=== PATIENT | female | born 1995 | race Caucasian/White ===

== ENCOUNTER 2018-06-22 21:46 | Emergency (ER) | payer BC ==
[2018-06-22 22:14] VITALS: BMI 29.8
[2018-06-23 03:43] VITALS: BP 103/76; PULSE 106; RESP 16; TEMP 99.3
--- NOTE | 2018-06-23 08:51 | US ---
Date of service: 06/22/2018 PROCEDURE: Limited obstetrical ultrasound examination and biophysical profile HISTORY: No FM "all day" COMPARISON: Not available TECHNIQUE: Transabdominal FINDINGS: There is a single live intrauterine gestation in cephalic presentation. The heart rate is 142 beats per minute. A normal quantity of amniotic fluid is visualized. The LUCERO is 12.7 cm. Normal anterior fundal placenta is identified. There is no evidence of placenta previa. The cervix measures 3.1 cm in length and is closed. biometry yields a gestational age of 36 weeks 5 days. The JOSE D by ultrasound is 07/15/2018. The EFW is 2831 g. Limited review of anatomy demonstrates fluid distending the stomach and urinary bladder. Two normal kidneys are demonstrated without evidence of hydronephrosis. A four-chamber heart is inadequately demonstrated at this time. A three-vessel umbilical cord is seen. The anterior abdominal wall is intact. No abnormality of the spine is demonstrated. Duplex Doppler are ultrasound of the umbilical artery yields a S/ D ratio of 1.8, within normal limits. Limited biophysical profile examination yields a score of 8 out of 8. IMPRESSION: Single live intrauterine gestation of 36 weeks 5 days gestational age. Cephalic presentation. No gross anatomic abnormality. Normal amniotic fluid volume. No previa. Anterior fundal placenta. Cervix long and closed. Biophysical profile score 8 out of 8. The preliminary findings for this examination were reported by [facility] at 11:16 p.m. on 06/22/2018. There is concurrence of this report with the preliminary findings.
== END 2018-06-22 23:30 | disposition home or self-care (01) ==
LOC: C.EROB 21:46
DX: O36.8130 Decreased fetal movements, third trimester, not applicable or unspecified (principal); Z3A.35 35 weeks gestation of pregnancy

== ENCOUNTER 2018-07-19 19:08 | Inpatient (IN) | payer BC ==
[2018-07-19 19:08] VITALS: BMI 29.8
--- NOTE | 2018-07-19 19:27 | OBADHP ---
Datetime: 07/19/2018 19:13 Admit Comment, IP Provider: 22 y/o at 39.4 wks presents with c/o ctx started this morning. Pt h as no c/o vaginal bleeding or LOF. + FM. Pt received PNC with Dr Toledo. PMH: Denies PSH: Denies POBH: Primigravid ALL: NKDA EXAM: VE: TOCO: CTX -irregualr EFM: 140 cat 1 GBS- Negative A/P: Admit to L_D to Dr Kristine Toledo's service CBC/CMP/IVF Epidural for anelgesia if requested by the pt. Plan for Amniotamy Pelvic Type - PN: Adequate Extremities - PN: Normal Abdomen - PN: Normal Back - PN: Normal Breast - PN: Normal Lungs - PN: Normal Heart - PN: Normal Thyroid - PN: Normal Neurologic - PN: Normal HEENT - PN: Normal General - PN: Normal Presentation-Admit: Vertex FHR - Baseline A Provider: 140 Membranes, Provider: Intact Contraction Comments Provider: irregular Comments, ACOG Physical Exam: ABD: Soft, NT ETR: No calf tenderness VE: Gestation - Est Wks by US: 39.4 Vital Signs Provider: Reviewed; Within Normal Limits IP Chief Complaint: Uterine contractions NICHD Variability Prov Fetus A: Marked >25bpm NICHD Accel Fetus A IP Provider: 15X15 FHR Category Provider Fetus A: Category I NICHD Decel Fetus A IP Provider: None Dilatation, Provider: 4-5 Effacement, Provider: 90 Station, Provider: -2 Genitourinary Exam: Normal DTRs - PN: Normal EGA AdmitDate IP: 39.4 IP Adm Impression: Term, intrauterine ; Active labor IP Admit Plan: Initiate labor protocol Datetime: 06/22/2018 22:17 IP Chief Complaint Other: No movement IP Adm Impression Other: (+) ovement IP Admit Plan Other: BPP
[2018-07-19] MEDS ORDERED: Lactated Ringer's 1,000 ML IV ONE (19:35)
[2018-07-19] MEDS ORDERED: Lactated Ringer's 1,000 ML IV SCH (19:45)
[2018-07-19 20:24] LABS: BASO % 0.2 % (0.0-2.0); EOS # 0.1 K/uL (0.0-0.7); EOS % 0.9 % (0.0-4.0); HEMOGLOBIN 11.8 g/dL (11.0-16.0); LYMPH # 2.2 K/uL (1.0-4.3); LYMPH % 17.9 % (20.0-40.0); MEAN CELL VOLUME 83.2 fL (81.0-99.0); MEAN CORPUSCULAR HEMOGLOBIN 27.6 pg (27.0-31.0); MEAN CORPUSCULAR HGB CONC 33.1 g/dL (33.0-37.0); MEAN PLATELET VOLUME 8.7 fL (7.2-11.7); MONO # 0.8 K/uL (0.0-0.8); MONO % 6.5 % (0.0-10.0); NEUT % 74.5 % (50.0-75.0); NRBC % 0.1 % (0.0-2.0); RBC 4.3 Mil/uL (3.80-5.20); RED CELL DISTRIBUTION WIDTH 14.7 % (11.5-14.5); WHITE BLOOD COUNT 12.1 K/uL (4.8-10.8)
[2018-07-19 20:31] LABS: SQUAMOUS EPITHIAL 41 /hpf (0-5); URINE BACTERIA MOD (<OCC); URINE BILIRUBIN NEGATIVE (NEGATIVE); URINE BLOOD 3+ (NEGATIVE); URINE CLARITY Hazy (Clear); URINE COLOR Amber (YELLOW); URINE GLUCOSE (UA) NORMAL (Normal); URINE LEUKOCYTE ESTERASE 3+ Leu/uL (Negative); URINE PROTEIN 2+ mg/dL (NEGATIVE); URINE UROBILINOGEN NORMAL mg/dL (0.2-1.0)
[2018-07-19 20:36] LABS: ALB/GLOB RATIO 1.1 (1.0-2.1); ALBUMIN 3.7 g/dL (3.5-5.0); ALT/SGPT 11 U/L (9-52); AST/SGOT 31 U/L (14-36); BLOOD UREA NITROGEN 8 mg/dL (7-17); CALCIUM 8.7 mg/dl (8.6-10.4); GFR NON-AFRICAN AMERICAN > 60
[2018-07-19] MEDS ORDERED: Bupivacaine HCl/FentaNYL Cit 100 ML EPI ONE (20:44)
--- NOTE | 2018-07-19 21:28 | OBPN ---
Datetime: 07/19/2018 21:24 IP Procedures: Artificial ROM IP Progress Plan: Continue present management Membranes, Provider: Ruptured Amniotic Fluid Color, Provider: Clear FHR - Baseline A Provider: 140 Presentation-Admit: Vertex IP Progress Note Comment: Pt comfortable with epidural Continue present management Vital Signs Provider: Reviewed; Within Normal Limits NICHD Accel Fetus A IP Provider: 15X15 NICHD Variability Prov Fetus A: Moderate 6-25bpm NICHD Decel Fetus A IP Provider: None Datetime: 07/19/2018 19:13 Contraction Comments Provider: irregular Gestation - Est Wks by US: 39.4 FHR Category Provider Fetus A: Category I Dilatation, Provider: 4-5 Effacement, Provider: 90 Station, Provider: -2
--- NOTE | 2018-07-19 22:53 | OBPN ---
Datetime: 07/19/2018 22:46 IP Progress Impression: Normal progression of labor IP Progress Plan: Continue present management; Anticipate Vaginal Delivery Membranes, Provider: Ruptured FHR - Baseline A Provider: 150 Gestation - Est Wks by US: 39.4 Presentation-Admit: Vertex IP Progress Note Comment: pt seen and examiend s/p epidural VS as above EFM: Cat I TOCO: q 5 min A/P @ 39.4 wks GA in labor strart pushing con ttoco adn efm FHR Category Provider Fetus A: Category I NICHD Variability Prov Fetus A: Moderate 6-25bpm Dilatation, Provider: 10 Effacement, Provider: 100 Station, Provider: -1 NICHD Decel Fetus A IP Provider: None
[2018-07-19] MEDS ORDERED: Oxytocin 30 UNIT 30 UNITS/500 ML BAG IV SCH (23:30)
[2018-07-20] MEDS ORDERED: Oxycodone/Acetaminophen 5/325 mg Tab PO PRN ×2 (00:10)
[2018-07-20] MEDS ORDERED: Benzocaine/Menthol 20%-0.5% Topical Spray (60 ml) TOP PRN (00:10)
--- NOTE | 2018-07-20 00:10 | OBPPN ---
Datetime: 07/20/2018 00:08 PP Pain Prov: Within normal limits PP Nausea Prov: Denies PP Flatus Prov: Yes PP Breasts Prov: Normal PP Heart Prov: Normal PP Lungs Prov: Normal PP Abdomen/Uterus Prov: Normal PP Lochia Prov: Normal PP Vulva/Perineum Prov: Normal PP CVA Tenderness Prov: Normal PP Extremities Prov: Normal PP C/S Incision Prov: Not Applicable PP Progress Prov: Not Applicable PP Impression Prov: Normal progression PP Progress Note Prov: pt seen and exmained. no complaints vs see aobve pe see above a/p s/ pnsdv ppd #1 am cbc pain mangent regualr diet encourage bresat feeidgn and ambuationg once stable Vital Signs Provider PP: Reviewed
--- NOTE | 2018-07-20 00:10 | OBDS ---
DELIVERY PERSONNEL Delivery Doctor: Casi Toledo MD Landscape Photographer: Yesenia Rm RN Anesthesiologist: DR CODY VILLAFUERTE MATERNAL INFORMATION Delivery Anesthesia: Epidural Estimated Blood Loss (ml): 300 Placenta Cultured: No Maternal Complications: None Provider Comments: pt was fullly diltaed and pushing. aturtai,c spontanoeus deliver of head in OA po sition, no nuchal cord noted. Atruamtic, spontaneous dlieveyr of anterior followd by posteiror shoule r followed by delivery of body. boht oral and nasal pasages of baby bulb suctioned. ubmcils cord clam pd and cut. baby handed ot mother on abdmen with rn assistance. cord blood adn cord gases collected a nd sent x 2. Spotnaeous deliveyr of intact placenta with membranes. Fundus firm, good hemostais. live femlae infnat. apars 9,9 . ebl 300ml intacta perienum no complicaitons LABOR SUMMARY EDC: 07/22/2018 00:00 (Annotations: Data stored by [facility] on behalf of user) No. Babies in Womb: 1 Attempted: No Labor Anesthesia: Epidural LABOR INFORMATION Onset of Labor: 07/19/2018 17:00 Complete Dilatation: 07/19/2018 22:15 Oxytocin: Augmentation Group B Beta Strep: Negative Steroids Given: None MEMBRANES Membranes Rupture Method: Artificial Rupture of Membranes: 07/19/2018 21:15 Length of Rupture (hrs): 2.72 Amniotic Fluid Color: Clear Amniotic Fluid Amount: Moderate Amniotic Fluid Odor: Normal STAGES OF LABOR Stage 1 hrs: 5 Stage 1 min: 15 Stage 2 hrs: 1 Stage 2 min: 43 Stage 3 hrs: 0 Stage 3 min: 4 Total Time in Labor hrs: 7 Total Time in Labor min: 2 VAGINAL DELIVERY Episiotomy: None Laceration Extension: N/A Laceration Type: None Initial Vag Sponge Count: 10 Final Vag Sponge Count: 10 Initial Vag Sharps Count: 0 Final Vag Sharps Count: 0 Sponge Count Correct: Yes BABY A INFORMATION Delivery Date/Time: 07/19/2018 23:58 Method of Delivery: Vaginal Born in Route : No : N/A Forceps: N/A Vacuum Extraction: N/A Shoulder Dystocia : No SHOULDER DYSTOCIA BABY A Infant Delivery Date/Time: 07/19/2018 23:58 PRESENTATION/POSITION BABY A Presentation: Cephalic Cephalic Presentation: Vertex Vertex Position: Left Occipital Anterior PLACENTA INFORMATION BABY A Placenta Delivery Time : 07/20/2018 00:02 Placenta Method of Delivery: Spontaneous Placenta Status: Delivered SCORES BABY A Heart Rate 1 min: >100 bpm Resp Effort 1 min: Good Cry Reflex Irritability 1 min: Cough or Sneeze or Pulls Away Muscle Tone 1 min: Active Motion Color 1 min: Body [place], Extremities Blue SCORE 1 MIN: 9 Heart Rate 5 min: >100 bpm Resp Effort 5 min: Good Cry Reflex Irritability 5 min: Cough or Sneeze or Pulls Away Color 5 min: Body [place], Extremities Blue INFORMATION BABY A Gestational Age at Delivery: 39.4 Gestational Status: Term Outcome : Liveborn Infant Condition : Stable Sex: Female IDENTIFICATION/MEDS BABY A ID Band Number: [id number] ID Band Location: Left Leg; Left Arm Sensor Applied: Yes Sensor Number: [id number] WEIGHT/LENGTH BABY A Infant Birthweight (gms): 3180 Weight (lb): 7 Infant Weight (oz): 0 CORD INFORMATION BABY A No. Cord Vessels: 3 Nuchal Cord : N/A Cord Blood Taken: No Infant Suction: Mouth
[2018-07-20 07:56] LABS: BASO % 0.3 % (0.0-2.0); EOS % 0.3 % (0.0-4.0); HEMOGLOBIN 10.8 g/dL (11.0-16.0); LYMPH # 2.4 K/uL (1.0-4.3); LYMPH % 15.9 % (20.0-40.0); MEAN CELL VOLUME 82.4 fL (81.0-99.0); MEAN CORPUSCULAR HEMOGLOBIN 27.8 pg (27.0-31.0); MEAN CORPUSCULAR HGB CONC 33.8 g/dL (33.0-37.0); MEAN PLATELET VOLUME 8.9 fL (7.2-11.7); MONO # 1.2 K/uL (0.0-0.8); NEUT # 11.2 K/uL (1.8-7.0); NEUT % 75.5 % (50.0-75.0); RBC 3.89 Mil/uL (3.80-5.20); RED CELL DISTRIBUTION WIDTH 14.2 % (11.5-14.5); WHITE BLOOD COUNT 14.9 K/uL (4.8-10.8)
[2018-07-20 08:32] VITALS: RESP 18
[2018-07-20] MEDS: Multiple Vitamins Tab PO SCH (10:57)
[2018-07-21 08:13] VITALS: BP 99/63; TEMP 98.3; O2SAT 98
[2018-07-21 08:52] LABS: BASO % 0.2 % (0.0-2.0); EOS # 0.2 K/uL (0.0-0.7); EOS % 1.3 % (0.0-4.0); HEMOGLOBIN 11.1 g/dL (11.0-16.0); LYMPH # 2.7 K/uL (1.0-4.3); LYMPH % 21.4 % (20.0-40.0); MEAN CELL VOLUME 83.6 fL (81.0-99.0); MEAN CORPUSCULAR HEMOGLOBIN 27.8 pg (27.0-31.0); MEAN CORPUSCULAR HGB CONC 33.2 g/dL (33.0-37.0); MEAN PLATELET VOLUME 8.6 fL (7.2-11.7); MONO # 0.8 K/uL (0.0-0.8); MONO % 6.4 % (0.0-10.0); NEUT # 8.9 K/uL (1.8-7.0); NEUT % 70.7 % (50.0-75.0); RBC 3.99 Mil/uL (3.80-5.20); RED CELL DISTRIBUTION WIDTH 14.4 % (11.5-14.5); WHITE BLOOD COUNT 12.6 K/uL (4.8-10.8)
[2018-07-21] MEDS: Multiple Vitamins Tab PO SCH (09:06)
[2018-07-21 21:43] VITALS: PULSE 87
== END 2018-07-21 14:45 | disposition home or self-care (01) | DRG 775 ==
LOC: C.EROB 19:08 → C.4D 19:19 → C.4M 07-20 02:00
PROVIDERS: ADMIT Obstetrics & Gynecology; ATTEND Obstetrics & Gynecology
PROC: 10E0XZZ Delivery of Products of Conception, External Approach (ICD-10-PCS; principal; 2018-07-19)
DX: O80 Encounter for full-term uncomplicated delivery (principal); Z3A.39 39 weeks gestation of pregnancy; Z37.0 Single live birth